=== PATIENT | female | born 1965 | race African-American/Black ===

== ENCOUNTER 2024-01-28 08:29 | Emergency (ER) | payer OTHER ==
[2024-01-28 08:42] VITALS: RESP 18; BMI 30.4
[2024-01-28] MEDS ORDERED: ACETAMINOPHEN INJECTION 100 ML IVPB ONE (09:00)
[2024-01-28] MEDS: ACETAMINOPHEN 1000 MG/100 ML BAG IVPB ONE (09:18)
[2024-01-28] MEDS ORDERED: LABETALOL HCL 20 MG/4 ML VIAL ONE (09:19)
[2024-01-28 09:22] LABS: BASO % 0.8 % (0-2.0); EOS % 2.1 % (0-4.5); HEMATOCRIT 38.1 % (32.4-45.2); HEMOGLOBIN 13.5 GM/dL (10.7-15.3); LYMPH % 20.9 % (8-40); MCH 30.4 pg (25.7-33.7); MCHC 35.4 g/dl (32.0-36.0); MEAN CELL VOLUME 85.7 fl (80-96); MEAN PLT VOLUME 7.2 fl (7.5-11.1); MONO % 7.5 % (3.8-10.2); NEUT % 68.7 % (42.8-82.8); PLATELET COUNT 372 10^3/uL (134-434); RBC 4.45 M/mm3 (3.60-5.2); RDW 12.9 % (11.6-15.6); WHITE BLOOD COUNT 5.5 K/mm3 (4.0-10.0)
[2024-01-28] MEDS: LABETALOL HCL 5 MG/1 ML (100MG/20 ML VIAL) IVPUSH ONE ×2 (09:27→13:05)
[2024-01-28 09:31] LABS: INR 1.02 (0.83-1.09); PROTHROMBIN TIME (PATIENT) 11.5 SEC (9.7-13.0)
[2024-01-28 09:34] LABS: ACTIVATED PTT 35.1 SECONDS (25.2-36.5)
[2024-01-28 09:41] LABS: POTASSIUM 3.6 mmol/L (3.5-5.1)
[2024-01-28 09:45] LABS: BLOOD UREA NITROGEN 13.2 mg/dL (7-18); CALCIUM 9.5 mg/dL (8.5-10.1); MAGNESIUM 2.3 mg/dL (1.8-2.4)
[2024-01-28 09:49] LABS: BILIRUBIN,TOTAL 0.5 mg/dL (0.2-1); CREATININE 0.8 mg/dL (0.55-1.3); TOT PROT 7.8 g/dl (6.4-8.2)
[2024-01-28 09:53] LABS: N-TERMINAL BNP 103.7 pg/ml (5-125)
[2024-01-28] MEDS ORDERED: morphine SULFATE 4 MG/ML VIAL ONE (12:53)
[2024-01-28] MEDS: morphine CARPU-JECT 4 MG/1 ML DISP.SYRIN IVPUSH ONE (13:00)
[2024-01-28] MEDS ORDERED: KETOROLAC TROMETHAMINE 15 MG/ML VIAL IVPUSH ONE (13:11)
[2024-01-28] MEDS: LACTATED RINGERS SOLUTION 1000 ML INFUS.BAG IV ONE (13:25)
[2024-01-28 13:39] VITALS: BP 135/76
[2024-01-28] MEDS ORDERED: HEPARIN NA (PORCINE) 5,000 UNITS/ML 1ML VIAL IVPUSH PRN ×2 (13:49)
[2024-01-28] MEDS ORDERED: HEPARIN NA (PORCINE) 5,000 UNITS/ML 1ML VIAL ONE (13:54)
[2024-01-28] MEDS ORDERED: HEPARIN INFUSION - 25,000 UNITS/500 ML INFUS.BAG IVPB ONE (13:54)
[2024-01-28] MEDS ORDERED: ASPIRIN 325 MG TABLET ONE (13:54)
[2024-01-28] MEDS ORDERED: TICAGRELOR 90 MG TABLET PO ONE (13:54)
[2024-01-28] MEDS ORDERED: HEPARIN - 25,000 UNIT in SODIUM CHLORIDE 495 ML IV SCH (14:00)
[2024-01-28] MEDS: HEPARIN NA (PORCINE) 5,000 UNITS/ML 1ML VIAL IVPUSH ONE (14:12)
[2024-01-28] MEDS: TICAGRELOR 60 MG TABLET PO STA (14:12)
[2024-01-28] MEDS: HEPARIN INFUSION - 25,000 UNITS/500 ML INFUS.BAG IVPB SCH (14:12)
[2024-01-28] MEDS: ASPIRIN 325 MG TABLET PO ONE (14:12)
[2024-01-28 14:18] VITALS: PULSE 80; TEMP 98.6
== END 2024-01-28 16:05 | disposition short-term general hospital (02) ==
LOC: JER 08:29
PROC: 3E033NZ Introduction of Analgesics, Hypnotics, Sedatives into Peripheral Vein, Percutaneous Approach (ICD-10-PCS; principal; 2024-01-28)
PROC: 3E033GC Introduction of Other Therapeutic Substance into Peripheral Vein, Percutaneous Approach (ICD-10-PCS; 2024-01-28)
PROC: 3E033GC Introduction of Other Therapeutic Substance into Peripheral Vein, Percutaneous Approach (ICD-10-PCS; 2024-01-28)
PROC: 3E033GC Introduction of Other Therapeutic Substance into Peripheral Vein, Percutaneous Approach (ICD-10-PCS; 2024-01-28)
PROC: 3E033NZ Introduction of Analgesics, Hypnotics, Sedatives into Peripheral Vein, Percutaneous Approach (ICD-10-PCS; 2024-01-28)
DX: I16.1 Hypertensive emergency (principal)
CPT/HCPCS: 36415; 70496-TC; 70498-TC; 71045-TC-FY; 80053; 83735; 83880; 84484; 85025; 85610; 85730; 93005; 93010; 99291; J0131; J1644